=== PATIENT | male | born 1945 | race Two or more races ===

== ENCOUNTER 2023-07-30 18:04 | Emergency (ER) | payer SELFPAY ==
[~2023-07-30] VITALS: Ht 177.8 cm; Wt 70.0 kg
[2023-07-30 18:10] VITALS: O2SAT 99
[2023-07-31 08:17] VITALS: BP 158/102; PULSE 56; RESP 16; TEMP 98.7
== END 2023-07-31 08:23 | disposition home or self-care (01) ==
LOC: ER 18:04
DX: K94.23 Gastrostomy malfunction (principal); I48.91 Unspecified atrial fibrillation; I10 Essential (primary) hypertension; Z86.73 Personal history of transient ischemic attack (TIA), and cerebral infarction without residual deficits
CPT/HCPCS: 43762; 99284